=== PATIENT | female | born 1935 | race Caucasian/White ===

== ENCOUNTER 2016-08-19 09:00 | Emergency (ER) | payer MEDICARE ==
[~2016-08-19] VITALS: Ht 157.5 cm; Wt 40.0 kg
[2016-08-19 09:04] VITALS: BP 168/76; PULSE 112; RESP 20; TEMP 98.1; O2SAT 98
[2016-08-19] MEDS ORDERED: TRAM50TA PO (09:24)
[2016-08-19] MEDS ORDERED: PRIM50TA5 PO (09:24)
[2016-08-19] MEDS ORDERED: MEMA1TAB2 PO (09:24)
[2016-08-19] MEDS ORDERED: TRIA1SPR6 EACH NARE (10:48)
[2016-08-19] MEDS ORDERED: AFRI0.059 EACH NARE (10:48)
--- NOTE | 2016-08-19 10:48 | PD ---
HPI . Right ear pain Chief Complaint: ENT Complaint Time Seen by Provider: 10:17 Travel History International Travel<30 days: No Contact w/Intl Traveler<30days: No Traveled to known affect area: No History of Present Illness HPI This is a demented woman who presents with right ear pain. She was reportedly seen at urgent care yesterday and given prednisone. She continues to complain of pain today so her daughter brings to the emergency department for further evaluation. The patient admits to some sinus congestion. She is not taking a decongestant because she has hypertension. She denies any associated fever. She denies any drainage. PFSH Past Medical History Alzheimer's Disease: Yes Cerebrovascular Accident: Yes Diminished Hearing: No Neurologic: Yes Tetanus Vaccination: > 5 Years Influenza Vaccination: Yes ?: Not Menopausal: Yes Past Surgical History Surgical History: No Previous Surgery Social History Alcohol Use: No Tobacco Use: Yes (1 pack per day ) Substance Use: No Allergies-Medications (Allergen,Severity, Reaction): Coded Allergies: No Known Allergies (Unverified , 08/19/16) Reported Meds & Prescriptions Reported Meds & Active Scripts Active Reported Memantine 10 Mg Tab 10 Mg PO DAILY Primidone 50 Mg Tab 50 Mg PO BID Tramadol (Tramadol HCl) 50 Mg Tab 50 Mg PO Q6H PRN Review of Systems Except as stated in HPI: all other systems reviewed are Neg General / Constitutional: No: Fever, Chills HENT: Positive: Congestion, Earache Physical Exam Narrative GENERAL: Afebrile, elderly woman who is in no acute distress. She has a piece of tissue in her right EAC. SKIN: Warm and dry. HEAD: Atraumatic. Normocephalic. EYES: Pupils equal and round. ENT: No nasal bleeding or discharge. Mucous membranes pink and moist. Her right TM is shiny browne with a good light reflex. The EAC appears normal. She reports no pain on movement of her ear. There is no tenderness at the TMJ. NECK: Trachea midline. There is no cervical lymphadenopathy. MUSCULOSKELETAL: No obvious deformities. No edema. NEUROLOGICAL: Awake and alert. No obvious cranial nerve deficits. Motor grossly within normal limits. Normal speech. PSYCHIATRIC: demented. Data Data Last Documented VS Vital Signs Date Time Temp Pulse Resp B/P Pulse Ox O2 Delivery O2 Flow Rate FiO2 08/19/16 09:25 17 08/19/16 09:04 98.1 112 168/76 98 Room Air [facility] Medical Decision Making Medical Screen Exam Complete: Yes Emergency Medical Condition: Yes Differential Diagnosis Differential diagnosis of ear pain includes but is not limited to acute otitis media, acute otitis externa, eustachian tube dysfunction, TMJ syndrome Narrative Course Patient presents for evaluation and treatment of right ear pain. She has a normal exam. I suspect eustachian tube dysfunction. She is reluctant to take decongestants because of a history of hypertension. I will recommend Afrin and steroid nasal spray. Diagnosis Primary Impression: Otalgia, right ear Patient Instructions: Eustachian Tube Dysfunction (GEN), General Instructions Med/Other Pt SpecificInfo: Prescription(s) given Scripts Triamcinolone Nasal (Nasacort Allergy 24Hr Nasal)55 Mcg/Act Spr2 [place] EACH NARE DAILY #1 BOTTLE Ref 0 Prov:Yolanda Blanc MD 08/19/16 Oxymetazoline Nasal (Afrin 12 Hour Nasal)0.05% Spray2-3 [place] EACH NARE Q12H PRN (NASAL CONGESTION) #1 BOTTLE Ref 0 Prov:Yolanda Blanc MD 08/19/16 Disposition: 01 DISCHARGE HOME Condition: Stable Yolanda Blanc MD Aug 19, 2016 10:48
[2016-08-19 10:56] VITALS: BP 140/76; TEMP 97.8
== END 2016-08-19 10:56 | disposition home or self-care (01) ==
LOC: NEPB 09:00
DX: H92.01 Otalgia, right ear (principal); R09.81 Nasal congestion; I10 Essential (primary) hypertension; G30.9 Alzheimer's disease, unspecified; F02.80 Dementia in other diseases classified elsewhere, unspecified severity, without behavioral disturbance, psychotic disturbance, mood disturbance, and anxiety; F17.200 Nicotine dependence, unspecified, uncomplicated; Z86.73 Personal history of transient ischemic attack (TIA), and cerebral infarction without residual deficits; Z86.69 Personal history of other diseases of the nervous system and sense organs
CPT/HCPCS: 99282

== ENCOUNTER 2017-05-21 07:19 | Emergency (ER) | payer MEDICARE ==
[~2017-05-21] VITALS: Ht 157.5 cm; Wt 40.0 kg
[~2017-05-21 07:19] MED LIST: AFRI0.059 EACH NARE; MEMA1TAB2 PO; PRIM50TA5 PO; TRAM50TA PO; TRIA1SPR6 EACH NARE
[2017-05-21 07:20] VITALS: BP 152/65; PULSE 71; RESP 18; TEMP 97.7; O2SAT 96
[2017-05-21] MEDS ORDERED: ORPH100T2 PO (08:18)
--- NOTE | 2017-05-21 08:23 | PD ---
HPI Chief Complaint: ENT Complaint Time Seen by Provider: 07:40 Travel History International Travel<30 days: No Contact w/Intl Traveler<30days: No Traveled to known affect area: No History of Present Illness HPI This patient complains of right ear pain. However she continually points to her neck rather than her ear. She does have dementia. She went to an urgent care center week ago and got antibiotics for supposed ear infection. Turns out she is having muscular right sided neck pain in the sternocleidomastoid. It's worse when she turns her head either direction. No injury or trauma. No midline neck pain. Duration one week PFSH Past Medical History Alzheimer's Disease: Yes Cardiovascular Problems: Yes High Cholesterol: Yes Cerebrovascular Accident: Yes Diminished Hearing: Yes Neurologic: Yes Menopausal: Yes Past Surgical History Surgical History: No Previous Surgery Social History Alcohol Use: No Tobacco Use: Yes (1 pack per day ) Substance Use: No Allergies-Medications (Allergen,Severity, Reaction): Coded Allergies: No Known Allergies (Unverified Adverse Reaction, Unknown, 05/21/17) Reported Meds & Prescriptions Reported Meds & Active Scripts Active Orphenadrine CR (Orphenadrine Citrate) 100 Mg Tab 100 Mg PO Q12HR PRN Nasacort Allergy 24Hr Nasal (Triamcinolone Nasal) 55 Mcg/Act Spr 2 [place] EACH NARE DAILY Afrin 12 Hour Nasal (Oxymetazoline HCl) 0.05% [place] 2-3 [place] EACH NARE Q12H PRN Reported Memantine 10 Mg Tab 10 Mg PO DAILY Primidone 50 Mg Tab 50 Mg PO BID Tramadol (Tramadol HCl) 50 Mg Tab 50 Mg PO Q6H PRN Review of Systems General / Constitutional: No: Fever HENT: No: Headaches Cardiovascular: No: Chest Pain or Discomfort Physical Exam Narrative TMs look normal Throat clear GASTROINTESTINAL: Abdomen soft, non-tender, nondistended. Positive bowel sounds. No hepato-splenomegaly, or palpable masses. No guarding. SKIN: Focused skin assessment reveals no rash or ulcers. Skin is warm and dry. Palpation shows no induration or nodules. Examination the neck reveals no midline tenderness. No swelling or bruising or redness or warmth. She has tenderness that is reproducible readily with palpation of the sternocleidomastoid on the right side or movement of that muscle. Data Data Last Documented VS Vital Signs Date Time Temp Pulse Resp B/P (MAP) Pulse Ox O2 Delivery O2 Flow Rate FiO2 05/21/17 07:20 97.7 71 18 152/65 (94) 96 MDM Medical Decision Making Medical Screen Exam Complete: Yes Emergency Medical Condition: Yes Medical Record Reviewed: Yes Differential Diagnosis Muscle spasm, muscle strain, whiplash Narrative Course I have reviewed the patient's electronic medical record. Patient seems to have musculoskeletal pain of the neck without injury. I don't feel x-ray would be helpful here She is neurologically intact She doesn't have peptic ulcer disease or renal disease per her daughter so were going to do a few days of low dose Advil and I wrote her a few days of muscle relaxant but warned her about sedation Diagnosis Primary Impression: Sternocleidomastoid muscle tenderness Additional Instructions: The patient was advised to follow up with their physician and return if they worsen. The patient was warned about potential sedation for the medications they will receive on prescription. Med/Other Pt SpecificInfo: Prescription(s) given Scripts Orphenadrine ER 12 HR (Orphenadrine CR) 100 Mg Tab 100 MG PO Q12HR Y for SPASM, #10 TAB 0 Refills Prov: Kelvin Oliva MD 05/21/17 Disposition: 01 DISCHARGE HOME Condition: Stable Kelvin Oliva MD May 21, 2017 08:23
== END 2017-05-21 09:09 | disposition home or self-care (01) ==
LOC: NEPE 07:19
DX: M62.838 Other muscle spasm (principal); M54.2 Cervicalgia; G30.9 Alzheimer's disease, unspecified; Z72.0 Tobacco use
CPT/HCPCS: 99283